=== PATIENT | male | born 1995 | race Caucasian/White ===

== ENCOUNTER 2019-02-13 16:35 | Emergency (ER) | payer SELFPAY ==
[~2019-02-13] VITALS: Ht 177.8 cm; Wt 65.9 kg
[2019-02-13 16:43] VITALS: TEMP 98.6
[2019-02-13 18:01] VITALS: BP 118/75; PULSE 66
== END 2019-02-13 18:12 | disposition home or self-care (01) ==
LOC: COL.ER 16:35
DX: S01.01XA Laceration without foreign body of scalp, initial encounter (principal); Z23 Encounter for immunization; W22.8XXA Striking against or struck by other objects, initial encounter; Y92.59 Other trade areas as the place of occurrence of the external cause

== ENCOUNTER 2019-02-19 11:03 | Emergency (ER) | payer SELFPAY ==
[2019-02-19 11:10] VITALS: BP 123/63; PULSE 66; TEMP 97.1
== END 2019-02-19 11:15 | disposition home or self-care (01) ==
LOC: COL.ER 11:03
DX: S01.01XD Laceration without foreign body of scalp, subsequent encounter (principal); X58.XXXD Exposure to other specified factors, subsequent encounter